=== PATIENT | female | born 1970 | race Caucasian/White ===

== ENCOUNTER 2021-03-16 11:53 | Emergency (ER) | payer OTHER ==
[2021-03-16 12:39] LABS: Absolute Lymphocytes (CBC) 3.1 K/uL (0.7-4.9); Hematocrit 40.4 % (36.0-45.0); Lymphocytes % 39.4 % (15.3-44.8); MPV 7.4 fL (7.6-11.3); RBC Red Blood Cell Count 4.49 M/uL (3.86-4.86)
[2021-03-16] MEDS ORDERED: ONDANSETRON 4 MG/2 ML VIAL ONE (12:48)
[2021-03-16] MEDS ORDERED: MORPHINE 2 MG/ML SYR ONE (12:48)
[2021-03-16 13:01] LABS: Protime INR 1.17
--- NOTE | 2021-03-16 13:11 | RAD REPORT ---
EXAM DESCRIPTION: RAD - Chest Single View - 03/16/2021 12:59 pm CLINICAL HISTORY: CHEST PAIN Chest pain. COMPARISON: No comparisons FINDINGS: Portable technique limits examination quality. The lungs are grossly clear. The heart is normal in size. No displaced fractures. IMPRESSION: No acute intrathoracic process suspected.
[2021-03-16 13:22] LABS: ALT/SGPT 43 U/L (12-78); AST/SGOT 31 U/L (15-37); Albumin 4.2 g/dL (3.4-5.0); Alkaline Phosphatase 66 U/L (45-117); BUN Blood Urea Nitrogen 12 mg/dL (7-18); Bicarbonate 27 mmol/L (21-32); Bilirubin Direct 0.1 mg/dL (0-0.2); Bilirubin Total 0.3 mg/dL (0.2-1.0); Glucose Level 112 mg/dL (74-106); Magnesium 2.2 mg/dL (1.8-2.4); NT PRO-BNP 35 pg/mL (<125); Potassium 3.9 mmol/L (3.5-5.1); Protein, Total 8.3 g/dL (6.4-8.2); Sodium Level 145 mmol/L (136-145); Troponin (Emerg Dept Use Only) < 0.02 ng/mL (0.0-0.045)
[2021-03-16] MEDS ORDERED: KETOROLAC 30 MG/ML INJ ONE (15:20)
[2021-03-16] MEDS ORDERED: DIAZEPAM 5 MG TABLET ONE (16:49)
--- NOTE | 2021-03-16 16:58 | ER ---
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 States same thing happened , she went to [place], work up negative. Diagnosed with pleurisy. Coronavirus screen: Vaccine status: Patient reports receiving the 1st dose of the Covid vaccine. Client denies travel out of the [place] in the last 14 days. At this time, the client does not indicate any symptoms associated with coronavirus-19. Ebola Screen: Patient denies travel to an Ebola-affected area in the 21 days before illness onset. Initial Sepsis Screen: Does the patient meet any 2 criteria? HR > 90 bpm. No. Patient's initial sepsis screen is negative. Does the patient have a suspected source of infection? No. Patient's initial sepsis screen is negative. Risk Assessment: Do you want to hurt yourself or someone else? Patient reports no desire to harm self or others. Onset of symptoms was March 16, 2021. 12:03 Method Of Arrival: Ambulatory ll1 12:03 Acuity: BERNICE 3 ll1 Historical: - Allergies: 12:05 No Known Allergies; ll1 - PMHx: 12:05 None; ll1 - PSHx: 12:05 None; ll1 - Immunization history:: Client reports receiving the Unruly \T\ Unruly single-dose vaccine. - Social history:: Smoking status: Patient denies any tobacco usage or history of. Screenin:30 Abuse screen: Denies threats or abuse. Nutritional screening: No deficits noted. sl2 Tuberculosis screening: No symptoms or risk factors identified. Fall Risk None identified. Assessment: 10:30 General: Appears distressed, uncomfortable, Behavior is cooperative, crying, Reports sl2 Left sided chest wall pain - worst with arm movement and deep breathing. 10:30 Pain: Complains of pain in left chest wall Pain does not radiate. Pain currently is 10 sl2 out of 10 on a pain scale. Quality of pain is described as aching, sharp, Pain began 2-3 days ago. Alleviated by repositioning, Aggravated by increased activity, Noted to be crying, grimacing, moaning, resistant to movement. Neuro: No deficits noted. Cardiovascular: No deficits noted. Respiratory: No deficits noted. GI: No deficits noted. : No deficits noted. EENT: No deficits noted. Derm: No deficits noted. Musculoskeletal: No deficits noted. Vital Signs: 12:03 BP 190 / 101; Pulse 104; Resp 18; Temp 98.2; Pulse Ox 99% ; Pain 10/10; ll1 13:30 BP 126 / 86; Pulse 66; Resp 18; Temp 97.8; Pulse Ox 99% on R/A; sl2 14:30 BP 128 / 76; Pulse 78; Resp 22; Temp 97.6; Pulse Ox 99% on R/A; sl2 15:30 BP 145 / 88; Pulse 66; Resp 18; Temp 98.2; sl2 16:30 BP 135 / 81; Pulse 74; Resp 16; Temp 98.2; Pulse Ox 99% on R/A; sl2 ED Course: 10:30 Patient has correct armband on for positive identification. teletypesetter monitor on. sl2 12:01 Patient arrived in ED. as 12:05 Markel Bull NP is PHCP. pm1 12:05 Phil Jain MD is Attending Physician. pm1 12:05 Triage completed. ll1 12:05 Arm band placed on Patient placed in an exam room, on a stretcher. ll1 12:13 Initial lab(s) drawn, by me, sent to lab. Inserted saline lock: 20 gauge in left dh3 antecubital area, using aseptic technique. Blood collected. 12:21 Emily Regalado, TAMANNA is Primary Nurse. sl2 12:59 XRAY Chest (1 view) In Process Unspecified. EDMS 17:38 No provider procedures requiring assistance completed. IV discontinued, intact, iw bleeding controlled, No redness/swelling at site. Pressure dressing applied. Patient maintains SpO2 saturation greater than 95% on room air. Administered Medications: 04:27 Drug: Valium (diazepam) 2.5 mg Route: PO; sl2 17:17 Follow up: Response: No adverse reaction; Pain is decreased sl2 12:46 Drug: Zofran (Ondansetron) 4 mg Route: IVP; Site: left antecubital; sl2 13:48 Follow up: Response: No adverse reaction sl2 12:48 Drug: morphine 4 mg Route: IVP; Site: left antecubital; sl2 13:48 Follow up: Response: No adverse reaction; Pain is decreased sl2 14:57 Drug: Ketorolac 30 mg Route: IVP; Site: left antecubital; sl2 15:20 Follow up: Response: No adverse reaction; Pain is decreased sl2 16:17 CANCELLED (Physician Discretion): Valium (diazepam) 2 mg PO once pm1 Outcome: 16:57 Discharge ordered by MD. pm1 17:39 Discharged to home ambulatory. iw 17:39 Condition: good 17:39 Discharge instructions given to patient, Instructed on discharge instructions, follow up and referral plans. medication usage, Demonstrated understanding of instructions, follow-up care, medications, Prescriptions given X 2. 17:39 Patient left the ED. iw Signatures: Dispatcher [employer] EDMS Nataliia Hardy Irene, TAMANNA RN Markel Bull, ZAIDA DIRECTOR GEOPHYSICAL LABORATORY pm1 Gemini Tapia 3 Russell Avina RN RN ll1 Emily Regalado RN RN sl2
--- NOTE | 2021-03-16 16:58 | EDPHYS ---
Physician Documentation [facility] Name: Yessica Howard Age: 50 yrs Sex: Female : 1970 Arrival Date: 03/16/2021 Time: 12:01 Bed 17 Private MD: ED Physician Phil Jain HPI: 03/16 12:09 This 50 yrs old Female presents to ER via Ambulatory with complaints of Chest pm1 Pain. 12:09 The patient or guardian reports chest pain that is located primarily in the left pm1 breast. Onset: 5 day(s) ago. The pain does not radiate. Associated signs and symptoms: The patient has no apparent associated signs or symptoms, Pertinent negatives: abdominal pain, cough, diaphoresis, dizziness, headache, nausea, shortness of breath, vomiting. The chest pain is described as sharp. Duration: The patient or guardian reports a single episode, that is still ongoing. Modifying factors: the symptoms are aggravated by deep breath, Moving left arm. Severity of pain: in the emergency department the pain is actually worse. The patient has not experienced similar symptoms in the past. The patient has been recently seen by a physician: Patient seen and evaluated at [facility] ER for the same complaint and was diagnosed with pleurisy. 16:48 Patient reports onset of left chest pain after riding on amusement park ride was bumpy. pm1 Pain possibly due to holding on to the ride with her left hand. Historical: - Allergies: 12:05 No Known Allergies; ll1 - PMHx: 12:05 None; ll1 - PSHx: 12:05 None; ll1 - Immunization history:: Client reports receiving the Unruly \T\ Unruly single-dose vaccine. - Social history:: Smoking status: Patient denies any tobacco usage or history of. ROS: 12:09 Constitutional: Negative for fever, chills, and weight loss. pm1 12:09 Respiratory: Negative for shortness of breath, cough, wheezing, and pleuritic chest pain, Abdomen/GI: Negative for abdominal pain, nausea, vomiting, diarrhea, and constipation, Back: Negative for injury and pain, MS/Extremity: Negative for injury and deformity, Skin: Negative for injury, rash, and discoloration. 12:09 Neuro: Negative for headache, weakness, numbness, tingling, and seizure. 12:09 Cardiovascular: Positive for chest pain, Negative for edema, palpitations. 12:09 All other systems are negative. Exam: 12:09 Constitutional: This is a well developed, well nourished patient who is awake, alert, pm1 and in no acute distress. Head/Face: Normocephalic, atraumatic. 12:09 Back: No spinal tenderness. No costovertebral tenderness. Full range of motion. Skin: Warm, dry with normal turgor. Normal color with no rashes, no lesions, and no evidence of cellulitis. MS/ Extremity: Pulses equal, no cyanosis. Neurovascular intact. Full, normal range of motion. 12:09 Chest/axilla: Inspection: normal, Palpation: no acute changes. 12:09 Cardiovascular: Rate: normal, Rhythm: regular, Pulses: no pulse deficits are appreciated, Edema: is not appreciated. 12:09 Respiratory: Exam negative for acute changes, the patient does not display signs of respiratory distress, Breath sounds: are clear throughout. 12:09 Abdomen/GI: Inspection: abdomen appears normal, Palpation: abdomen is soft and non-tender, in all quadrants. 12:09 Neuro: Exam negative for acute changes, Orientation: is normal, Mentation: is normal, Motor: is normal, moves all fours. Vital Signs: 12:03 BP 190 / 101; Pulse 104; Resp 18; Temp 98.2; Pulse Ox 99% ; Pain 10/10; ll1 13:30 BP 126 / 86; Pulse 66; Resp 18; Temp 97.8; Pulse Ox 99% on R/A; sl2 14:30 BP 128 / 76; Pulse 78; Resp 22; Temp 97.6; Pulse Ox 99% on R/A; sl2 15:30 BP 145 / 88; Pulse 66; Resp 18; Temp 98.2; sl2 16:30 BP 135 / 81; Pulse 74; Resp 16; Temp 98.2; Pulse Ox 99% on R/A; sl2 MDM: 12:05 Patient medically screened. pm1 14:38 Data reviewed: vital signs. Data interpreted: Pulse oximetry: on room air is 99 %. pm1 Interpretation: normal. 16:57 Counseling: I had a detailed discussion with the patient and/or guardian regarding: the pm1 historical points, exam findings, and any diagnostic results supporting the discharge/admit diagnosis, lab results, radiology results, the need for outpatient follow up, to return to the emergency department if symptoms worsen or persist or if there are any questions or concerns that arise at home. 03/16 12:09 Order name: Basic Metabolic Panel; Complete Time: 13:23 pm1 03/16 12:09 Order name: CBC with Diff; Complete Time: 13:10 pm1 03/16 12:09 Order name: LFT's; Complete Time: 13:23 pm1 03/16 12:09 Order name: Magnesium; Complete Time: 13:23 pm1 03/16 12:09 Order name: NT PRO-BNP; Complete Time: 13:23 pm1 03/16 12:09 Order name: PT-INR; Complete Time: 13:10 pm1 03/16 12:09 Order name: Troponin (emerg Dept Use Only); Complete Time: 13:23 pm1 03/16 12:09 Order name: XRAY Chest (1 view); Complete Time: 13:23 pm1 03/16 15:48 Order name: Troponin (emerg Dept Use Only): Draw at 1615; Complete Time: 16:57 pm1 03/16 12:09 Order name: EKG; Complete Time: 12:10 pm1 03/16 12:09 Order name: Cardiac monitoring; Complete Time: 13:18 pm1 03/16 12:09 Order name: EKG - Nurse/Tech; Complete Time: 13:18 pm1 03/16 12:09 Order name: IV Saline Lock; Complete Time: 12:21 pm1 03/16 12:09 Order name: Labs collected and sent; Complete Time: 12:21 pm1 03/16 12:09 Order name: O2 Per Protocol; Complete Time: 13:18 pm1 03/16 12:09 Order name: O2 Sat Monitoring; Complete Time: 13:18 pm1 Administered Medications: 04:27 Drug: Valium (diazepam) 2.5 mg Route: PO; sl2 17:17 Follow up: Response: No adverse reaction; Pain is decreased sl2 12:46 Drug: Zofran (Ondansetron) 4 mg Route: IVP; Site: left antecubital; sl2 13:48 Follow up: Response: No adverse reaction sl2 12:48 Drug: morphine 4 mg Route: IVP; Site: left antecubital; sl2 13:48 Follow up: Response: No adverse reaction; Pain is decreased sl2 14:57 Drug: Ketorolac 30 mg Route: IVP; Site: left antecubital; sl2 15:20 Follow up: Response: No adverse reaction; Pain is decreased sl2 16:17 CANCELLED (Physician Discretion): Valium (diazepam) 2 mg PO once pm1 Disposition: 03/17 10:38 Co-signature as Attending Physician, Phil Jain MD I agree with the assessment and mason plan of care. Disposition Summary: 03/16/21 16:57 Discharge Ordered Location: Home pm1 Problem: new pm1 Symptoms: have improved pm1 Condition: Stable pm1 Diagnosis - Chest pain, unspecified pm1 Followup: pm1 - With: Emergency Department - When: As needed - Reason: Worsening of condition Followup: pm1 - With: Private Physician - When: 2 - 3 days - Reason: Recheck today's complaints, Continuance of care, Re-evaluation by your physician Discharge Instructions: - Discharge Summary Sheet pm1 - Nonspecific Chest Pain, Adult pm1 Forms: - Medication Reconciliation Form pm1 - Thank You Letter pm1 - Antibiotic Education pm1 - Prescription Opioid Use pm1 - Work release form pm1 Prescriptions: - Cyclobenzaprine 10 mg Oral Tablet - take 1 tablet by ORAL route every 8 hours As needed; 30 tablet; Refills: 0, pm1 Product Selection Permitted - Diclofenac Sodium 75 mg Oral tablet,delayed release (DR/EC) - take 1 tablet by ORAL route 2 times per day As needed; 30 tablet; Refills: 0, pm1 Product Selection Permitted Signatures: Dispatcher [employer] Phil Lemus MD MD cha Marinas, Patrick, ZAIDA MAINTENANCE WORKER HOUSE TRAILER pm1 Russell Avina RN RN ll1 Emily Regalado RN RN sl2 Corrections: (The following items were deleted from the chart) 03/16 16:17 16:09 Valium (diazepam) 2 mg PO once ordered. pm1 pm1
[2021-03-16 18:00] VITALS: O2SAT 99
[2021-03-16 18:04] VITALS: TEMP 98.2
[2021-03-16 18:06] VITALS: BP 135/81
== END 2021-03-16 17:39 | disposition home or self-care (01) ==
LOC: ER 11:53
DX: R07.9 Chest pain, unspecified (principal)
CPT/HCPCS: 93005; 85025; 80048; 36415; 83735; 85610; 80076; 84484 ×2; 83880; 71045; 96375; 96374; 99285; J2270; J2405

== ENCOUNTER 2021-12-30 09:04 | Emergency (ER) | payer BC, OTHER ==
[2021-12-30] MEDS ORDERED: ONDANSETRON 4 MG/2 ML VIAL ONE (09:28)
[2021-12-30] MEDS ORDERED: MORPHINE 4 MG/ML SYR ONE ×2 (09:28→10:09)
[2021-12-30] MEDS ORDERED: NA CHLORIDE 0.9% 1,000 ML ONE (09:28)
[2021-12-30 09:39] LABS: Absolute Lymphocytes (CBC) 1.7 K/uL (0.7-4.9); Hematocrit 39.3 % (36.0-45.0); Lymphocytes % 20.3 % (15.3-44.8); MCV 87.7 fL (80-100); MPV 6.9 fL (7.6-11.3); RBC Red Blood Cell Count 4.49 M/uL (3.86-4.86)
[2021-12-30 09:50] LABS: Albumin 4.1 g/dL (3.4-5.0); Bilirubin Total 0.3 mg/dL (0.2-1.0); Potassium 3.7 mmol/L (3.5-5.1); Protein, Total 7.6 g/dL (6.4-8.2)
[2021-12-30] MEDS ORDERED: KETOROLAC 30 MG/ML INJ ONE (10:23)
[2021-12-30 10:36] LABS: Urine Blood Negative (Negative); Urine Glucose Negative (Negative); Urine Protein Negative (Negative); Urine Specific Gravity >=1.030 (1.005-1.030); Urine pH 5.5 (5.0-7.0)
[2021-12-30 10:58] LABS: Calcium Oxalate Crystals- Ur Few /HPF (None Seen); Urine Bacteria <20 /HPF (<20); Urine Mucus 1+ /HPF (None Seen); Urine RBC <5 /HPF (None Seen)
[2021-12-30] MEDS ORDERED: HYDROMORPHONE HCL 1 MG/ML INJ ONE ×2 (11:01→12:35)
--- NOTE | 2021-12-30 11:01 | RAD REPORT ---
EXAM DESCRIPTION: CTStone Protocol - 12/30/2021 10:42 am CLINICAL HISTORY: Flank pain, kidney stone suspected COMPARISON: No comparisons TECHNIQUE: CT of the abdomen and pelvis was performed. All CT scans are performed using dose optimization technique as appropriate and may include automated exposure control or mA/KV adjustment according to patient size. FINDINGS: Lower chest: No acute abnormality. Circumferentially thickened distal esophagus. Liver: No acute abnormality or suspicious lesions. Biliary: No biliary ductal dilatation. Stomach: No significant focal abnormality. Duodenum: No significant focal abnormality. Pancreas: No significant abnormality. Spleen: No significant abnormality. Adrenal: No suspicious lesions. Kidney/ureter: Probable 3 mm stone in the right distal ureter but there are several phleboliths/ calc ifications in the region. Nonobstructing stones in the right kidney and left. Retroperitoneum: No retroperitoneal adenopathy. Vascular: No aneurysm. Bowel: No significant focal abnormality. Appendix is nonvisualized. No secondary signs of acute appen dicitis. Peritoneum: No ascites or free air. Bladder: Grossly unremarkable. Reproductive: No adnexal masses. Bones: No acute fracture. Multilevel degenerative changes are present in the spine. Other: n/a IMPRESSION: Mild right-sided hydroureteronephrosis. 3 mm stone suspected in the right distal ureter.
[2021-12-30] MEDS ORDERED: TAMSULOSIN 0.4 MG SR CAP ONE (11:32)
[2021-12-30] MEDS ORDERED: MAGNESIUM SULFATE 1 gm IVPB 1 GM/100 ML BAG IV ONE (11:32)
--- NOTE | 2021-12-30 12:25 | EDPHYS ---
Physician Documentation [facility] Name: Yessica Howard Age: 51 yrs Sex: Female : 1970 Arrival Date: 12/30/2021 Time: 09:06 Bed 12 Private MD: ED Physician Phil Jain HPI: 12/30 09:20 This 51 yrs old Female presents to ER via Ambulatory with complaints of Flank Pain. cp 09:20 The patient complains of pain in the right flank. The pain radiates to the right side cp low back. Onset: The symptoms/episode began/occurred this morning. 09:20 Associated signs and symptoms: Pertinent positives: nausea, vomiting, Pertinent cp negatives: diarrhea, dysuria, fever, pain radiating to the lower extremities. Severity of pain: in the emergency department the pain is unchanged despite home interventions. BASKETBALL SCOUT: 10:04 LMP N/A - Post-menopause iw Historical: - Allergies: 09:11 No Known Allergies; iw - Home Meds: 09:11 None [Active]; iw - PMHx: 09:11 None; iw - PSHx: 09:11 None; iw - Immunization history:: Client reports receiving the 2nd dose of the Covid vaccine. - Social history:: Smoking status: Patient denies any tobacco usage or history of. ROS: 09:30 Constitutional: Negative for body aches, chills, fever, poor PO intake. cp 09:30 Eyes: Negative for injury, pain, redness, and discharge. cp 09:30 Cardiovascular: Negative for chest pain, palpitations. 09:30 Respiratory: Negative for cough, shortness of breath, wheezing. 09:30 Abdomen/GI: Positive for nausea and vomiting, Negative for diarrhea, constipation. 09:30 Back: Positive for flank pain, on the right, Negative for injury or acute deformity, decreased range of motion. 09:30 : Negative for urinary symptoms. 09:30 Neuro: Negative for altered mental status, headache, weakness. 09:30 All other systems are negative. Exam: 09:33 Constitutional: The patient appears in no acute distress, alert, awake, cp non-diaphoretic, non-toxic, well developed, well nourished, in obvious pain, uncomfortable. 09:33 Head/Face: Normocephalic, atraumatic. cp 09:33 Eyes: Periorbital structures: appear normal, Conjunctiva: normal, no exudate, no injection, Sclera: no appreciated abnormality, Lids and lashes: appear normal, bilaterally. 09:33 ENT: External ear(s): are unremarkable, Nose: is normal, Mouth: Lips: moist, Oral mucosa: moist, Posterior pharynx: Airway: no evidence of obstruction, patent. 09:33 Chest/axilla: Inspection: normal. 09:33 Cardiovascular: Rate: normal, Rhythm: regular. 09:33 Respiratory: the patient does not display signs of respiratory distress, Respirations: normal, no use of accessory muscles, no retractions, labored breathing, is not present, Breath sounds: are clear throughout, no decreased breath sounds, no stridor, no wheezing. 09:33 Abdomen/GI: Inspection: abdomen appears normal, Bowel sounds: active, all quadrants, Palpation: soft, in all quadrants, severe abdominal tenderness, in the posterior aspect of right lateral abdomen, anterior aspect of right lateral abdomen and right lower quadrant, rebound tenderness, is not appreciated, voluntary guarding, is elicited in the posterior aspect of right lateral abdomen, anterior aspect of right lateral abdomen and right lower quadrant. 09:33 Skin: cellulitis, is not appreciated, no rash present. 09:33 Neuro: Orientation: to person, place \T\ time. Mentation: is normal, Motor: moves all fours, strength is normal, Sensation: is normal. Vital Signs: 09:10 BP 154 / 85; Pulse 96; Resp 18; Temp 98.0; Pulse Ox 100% on R/A; Weight 56.7 kg; Height iw 5 ft. 5 in. (165.10 cm); Pain 10/10; 10:55 BP 114 / 75; Pulse 74; Resp 16; Pulse Ox 100% on R/A; Pain 10/10; iw 09:10 Body Mass Index 20.80 (56.70 kg, 165.10 cm) iw MDM: 09:12 Patient medically screened. cp 12:24 Data reviewed: vital signs, nurses notes, lab test result(s), radiologic studies, CT cp scan. 12:24 Differential diagnosis: nephrolithiasis, pyelonephritis, UTI, pancreatitis. Counseling: cp I had a detailed discussion with the patient and/or guardian regarding: the historical points, exam findings, and any diagnostic results supporting the discharge/admit diagnosis, lab results, radiology results, to return to the emergency department if symptoms worsen or persist or if there are any questions or concerns that arise at home. Response to treatment: the patient's symptoms have markedly improved after treatment, and as a result, I will discharge patient. 12/30 09:12 Order name: CBC with Diff; Complete Time: 10:00 iw 12/30 10:01 Interpretation: Normal except: MPV 6.9. cp 12/30 09:12 Order name: CMP; Complete Time: 10:00 iw 12/30 10:01 Interpretation: Normal except: CL 113; GLUC 125. cp 12/30 09:12 Order name: Lipase; Complete Time: 10:00 iw 12/30 09:17 Order name: Urine Microscopic Only; Complete Time: 11:08 cp 12/30 11:08 Interpretation: Reviewed. 12/30 10:36 Order name: Urine Dipstick-Ancillary; Complete Time: 10:38 EDMS 12/30 10:00 Order name: CT Stone Protocol; Complete Time: 11:08 cp 12/30 09:12 Order name: IV Saline Lock; Complete Time: 09:24 iw 12/30 09:12 Order name: Labs collected and sent; Complete Time: 09:27 iw 12/30 09:12 Order name: Urine Dipstick-Ancillary (obtain specimen); Complete Time: 10:20 iw 12/30 11:10 Order name: PO challenge; Complete Time: 12:24 cp Administered Medications: : Drug: morphine 4 mg Route: IVP; Infused Over: 4 mins; Site: left antecubital; iw Drug: Zofran (Ondansetron) 4 mg Route: IVP; Site: left antecubital; iw : Drug: NS 0.9% 1000 ml Route: IV; Rate: 1 bolus; Site: left antecubital; iw 10:45 Follow up: IV Status: Completed infusion; IV Intake: 1000ml ss 10: Drug: Ketorolac 15 mg Route: IVP; Site: left antecubital; iw 10:40 Follow up: Response: No change in condition; Pain is unchanged, physician notified iw 10:19 Drug: morphine 4 mg Route: IVP; Infused Over: 4 mins; Site: left antecubital; iw 10:40 Follow up: Response: No change in condition; Pain is unchanged, physician notified iw 10:58 Drug: Dilaudid (HYDROmorphone) 1 mg Route: IVP; Site: left antecubital; iw 12:39 Follow up: Response: No adverse reaction; pain minimally decreased, temporarily ss 11:28 Drug: Flomax (tamsulosin) 0.4 mg Route: PO; [facility] 12:39 Follow up: Response: No adverse reaction ss 11:29 Drug: Magnesium Sulfate 1 grams Route: IVPB; Infused Over: 1 hrs; Site: left [facility] antecubital; 12:30 Follow up: IV Status: Completed infusion; IV Intake: 100ml ss 12:35 Drug: Dilaudid (HYDROmorphone) 1 mg Route: IVP; Site: left antecubital; iw 12:40 Follow up: Response: No adverse reaction; Pain is decreased ss Disposition Summary: 12/30/21 12:24 Discharge Ordered Location: Home cp Problem: new cp Symptoms: have improved cp Condition: Stable cp Diagnosis - Calculus of kidney with calculus of ureter - right cp Followup: cp - With: Joseph Brooks MD - When: 2 - 3 days - Reason: pain continues Discharge Instructions: - Discharge Summary Sheet cp - Kidney Stones cp - Renal Colic cp Forms: - Medication Reconciliation Form cp - Thank You Letter cp - Antibiotic Education cp - Prescription Opioid Use cp - Work release form Prescriptions: - Flomax 0.4 mg Oral capsule - take 1 capsule by ORAL route once daily 1/2 hour following the same meal each cp day; 5 capsule; Refills: 0, Product Selection Permitted - Ibuprofen 800 mg Oral Tablet - take 1 tablet by ORAL route every 8 hours As needed take with food; 30 tablet; cp Refills: 0, Product Selection Permitted - Zofran 4 mg Oral Tablet - take 1 tablet by ORAL route every 12 hours As needed; 20 tablet; Refills: 0, cp Product Selection Permitted - Tylenol-Codeine #3 300 mg-30 mg Oral - take 2 tablet by ORAL route every 6-8 hours As needed; 20 tablet; Refills: 0, cp Product Selection Permitted Signatures: Dispatcher [employer] Roxi Tse RN RN Phil Anderson PA PA cp Selene Macias RN RN [facility] Smirch, Cathy RN ss
--- NOTE | 2021-12-30 12:25 | ER ---
Nurse's Notes [facility] Name: Yessica Howard Age: 51 yrs Sex: Female : 1970 Arrival Date: 12/30/2021 Time: 09:06 Bed 12 Private MD: Diagnosis: Calculus of kidney with calculus of ureter-right Presentation: 12/30 09:10 Chief complaint: Patient states: right side pain , hurts more when she moves, started iw this morning , no hx of kidney stone. Coronavirus screen: At this time, the client does not indicate any symptoms associated with coronavirus-19. Ebola Screen: Patient negative for fever greater than or equal to 101.5 degrees Fahrenheit, and additional compatible Ebola Virus Disease symptoms Patient denies exposure to infectious person. Patient denies travel to an Ebola-affected area in the 21 days before illness onset. No symptoms or risks identified at this time. Initial Sepsis Screen: Does the patient meet any 2 criteria? No. Patient's initial sepsis screen is negative. Does the patient have a suspected source of infection? No. Patient's initial sepsis screen is negative. Risk Assessment: Do you want to hurt yourself or someone else? Patient reports no desire to harm self or others. Onset of symptoms was December 30, 2021. 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 - Social history:: Smoking status: Patient denies any tobacco usage or history of. Screenin:13 Abuse screen: Denies threats or abuse. Denies injuries from another. Nutritional iw screening: No deficits noted. Tuberculosis screening: No symptoms or risk factors identified. Fall Risk IV access (20 points). Assessment: 09:12 General: Appears uncomfortable, ill, Behavior is calm, cooperative. Pain: Complains of iw pain in posterior aspect of right lateral abdomen, anterior aspect of right lateral abdomen and right upper quadrant. Neuro: Level of Consciousness is awake, alert, obeys commands, Oriented to person, place, time, situation. Cardiovascular: Patient's skin is warm and dry. Respiratory: Respiratory effort is even. GI: Reports nausea. : Reports pain in right flank(s). Derm: Skin is intact, is healthy with good turgor. Musculoskeletal: Range of motion: intact in all extremities. 10:15 Reassessment: No changes from previously documented assessment. Patient states symptoms iw have not improved. 10:50 Reassessment: No changes from previously documented assessment. Patient states symptoms iw have not improved. General: Appears uncomfortable. 12:00 Reassessment: No changes from previously documented assessment. Patient states symptoms iw have not improved. 12:37 Reassessment: RASS score 0. Pt remains in exam room awaiting ride. Verbalizes ss understanding to push call light when ride arrives and we will assist her to vehicle as necessary. RR even and unlabored. PT is grateful for care received thus far. Vital Signs: 09:10 BP 154 / 85; Pulse 96; Resp 18; Temp 98.0; Pulse Ox 100% on R/A; Weight 56.7 kg; Height iw 5 ft. 5 in. (165.10 cm); Pain 10/10; 10:55 BP 114 / 75; Pulse 74; Resp 16; Pulse Ox 100% on R/A; Pain 10/10; iw 09:10 Body Mass Index 20.80 (56.70 kg, 165.10 cm) iw ED Course: 09:06 Patient arrived in ED. rg4 09:11 Triage completed. iw 09:11 Arm band placed on. iw 09:12 Roxi Casey, RN is Primary Nurse. iw 09:12 Phil Anderson PA is PHCP. cp 09:12 Phil Jain MD is Attending Physician. cp 09:23 Inserted saline lock: 20 gauge in left antecubital area, using aseptic technique. Blood kc6 collected. 09:27 CBC with Diff Sent. kc6 09:27 CMP Sent. kc6 09:27 Lipase Sent. kc6 10:44 CT Stone Protocol In Process Unspecified. EDMS 12:23 Joseph Brooks MD is Referral Physician. cp 12:37 Patient has correct armband on for positive identification. ss 12:37 No provider procedures requiring assistance completed. IV discontinued, intact, ss bleeding controlled, No redness/swelling at site. Pressure dressing applied. Administered Medications: 09:27 Drug: morphine 4 mg Route: IVP; Infused Over: 4 mins; Site: left antecubital; iw 09:27 Drug: Zofran (Ondansetron) 4 mg Route: IVP; Site: left antecubital; iw 09:27 Drug: NS 0.9% 1000 ml Route: IV; Rate: 1 bolus; Site: left antecubital; iw 10:45 Follow up: IV Status: Completed infusion; IV Intake: 1000ml ss 10:19 Drug: Ketorolac 15 mg Route: IVP; Site: left antecubital; iw 10:40 Follow up: Response: No change in condition; Pain is unchanged, physician notified iw 10:19 Drug: morphine 4 mg Route: IVP; Infused Over: 4 mins; Site: left antecubital; iw 10:40 Follow up: Response: No change in condition; Pain is unchanged, physician notified iw 10:58 Drug: Dilaudid (HYDROmorphone) 1 mg Route: IVP; Site: left antecubital; iw 12:39 Follow up: Response: No adverse reaction; pain minimally decreased, temporarily ss 11:28 Drug: Flomax (tamsulosin) 0.4 mg Route: PO; 5 12:39 Follow up: Response: No adverse reaction ss 11:29 Drug: Magnesium Sulfate 1 grams Route: IVPB; Infused Over: 1 hrs; Site: left [facility] antecubital; 12:30 Follow up: IV Status: Completed infusion; IV Intake: 100ml ss 12:35 Drug: Dilaudid (HYDROmorphone) 1 mg Route: IVP; Site: left antecubital; iw 12:40 Follow up: Response: No adverse reaction; Pain is decreased ss Medication: 12:37 VIS not applicable for this client. ss Intake: 10:45 IV: 1000ml; Total: 1000ml. ss 12:30 IV: 100ml; Total: 1100ml. ss Outcome: 12:24 Discharge ordered by MD. cp 12:37 Condition: improved ss 12:37 Discharge instructions given to patient, Instructed on discharge instructions, follow up and referral plans. medication usage, Demonstrated understanding of instructions, follow-up care, medications, Prescriptions given X 4. 13:11 Discharged to home ambulatory. ss 13:12 Patient left the ED. ss Signatures: Dispatcher [employer] Roxi Tse RN RN iw Cathy Valle RN RN ss Phil Anderson PA PA cp Garcia, Rubi rg4 Selene Macias RN RN jh5 Shalini Marquez kc6 Corrections: (The following items were deleted from the chart) 09:12 09:10 Pulse 96bpm; Resp 18bpm; Pulse Ox 100% RA; Temp 98.0F; 56.7 kg; Height 5 ft. 5 iw in.; BMI: 20.8; Pain 10; iw
[2021-12-30 14:44] VITALS: TEMP 98; O2SAT 100
[2021-12-30 14:52] VITALS: BP 114/75
== END 2021-12-30 13:12 | disposition home or self-care (01) ==
LOC: ER 09:04
DX: N20.2 Calculus of kidney with calculus of ureter (principal)
CPT/HCPCS: 85025; 36415; 83690; 80053; 76377; 74176; J3475; J1170 ×2; J7030; J2405; 81003; 81015

== ENCOUNTER 2021-12-31 12:02 | Emergency (ER) | payer BC ==
[2021-12-31 13:30] LABS: Absolute Lymphocytes (CBC) 1.3 K/uL (0.7-4.9); Hematocrit 36.1 % (36.0-45.0); Lymphocytes % 13.4 % (15.3-44.8); MCV 88.1 fL (80-100); MPV 8.6 fL (7.6-11.3)
[2021-12-31] MEDS ORDERED: KETOROLAC 30 MG/ML INJ ONE (14:10)
[2021-12-31] MEDS ORDERED: PROMETHAZINE INJ 25 MG/ML AMP ONE ×2 (14:12→16:52)
[2021-12-31 14:15] LABS: Urine Blood 2+ (Negative); Urine Glucose Negative (Negative); Urine Protein Negative (Negative); Urine Specific Gravity <=1.005 (1.005-1.030)
[2021-12-31 14:25] LABS: Albumin 3.8 g/dL (3.4-5.0); Bilirubin Total 0.4 mg/dL (0.2-1.0); Protein, Total 7.2 g/dL (6.4-8.2)
--- NOTE | 2021-12-31 15:43 | ER ---
Nurse's Notes [facility] Name: Yessica oHward Age: 51 yrs Sex: Female : 1970 Arrival Date: 12/31/2021 Time: 12:15 Bed 12 Private MD: Diagnosis: Unspecified renal colic Presentation: 12/31 12:58 Chief complaint: Patient states: Arrived via EMS - pt reporting right flank pain. Came ld1 to ER yesterday - diagnosed with kidney stone. Pt reporting pain - no relief from medications. Coronavirus screen: At this time, the client does not indicate any symptoms associated with coronavirus-19. Ebola Screen: No symptoms or risks identified at this time. Initial Sepsis Screen: Does the patient meet any 2 criteria? No. Patient's initial sepsis screen is negative. Does the patient have a suspected source of infection? No. Patient's initial sepsis screen is negative. Risk Assessment: Do you want to hurt yourself or someone else? Patient reports no desire to harm self or others. Onset of symptoms was December 31, 2021. 12:58 Method Of Arrival: Ambulatory ld1 12:58 Acuity: BERNICE 3 ld1 Triage Assessment: 12:58 General: Appears in no apparent distress. uncomfortable, Behavior is anxious, crying, ld1 fussy. Pain: Complains of pain in right low back and right lower quadrant. EENT: No signs and/or symptoms were reported regarding the EENT system. Neuro: Level of Consciousness is awake, alert, obeys commands, Oriented to person, place, time, situation. Cardiovascular: Capillary refill < 3 seconds Patient's skin is warm and dry. Respiratory: Airway is patent Respiratory effort is even, unlabored. GI: Abdomen is flat, non-distended, Reports upper abdominal pain. : No signs and/or symptoms were reported regarding the genitourinary system. Derm: No signs and/or symptoms reported regarding the dermatologic system. Musculoskeletal: No signs and/or symptoms reported regarding the musculoskeletal system. 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 - Social history:: Smoking status: Patient denies any tobacco usage or history of. Patient/guardian denies using alcohol. Screenin:01 Abuse screen: Denies threats or abuse. Denies injuries from another. Nutritional iw screening: No deficits noted. Tuberculosis screening: No symptoms or risk factors identified. Fall Risk IV access (20 points). Assessment: 13:02 Reassessment: LABS completed in triage. ld1 15:01 Reassessment: Patient appears in no apparent distress at this time. Patient and/or iw family updated on plan of care and expected duration. Pain level reassessed. Patient states feeling better. Patient states symptoms have improved. Vital Signs: 12:58 BP 128 / 83; Pulse 91; Resp 18; Temp 98.1(TE); Pulse Ox 100% on R/A; Weight 58.97 kg; ld1 Height 5 ft. 5 in. (165.10 cm); Pain 10/10; 12:58 Body Mass Index 21.63 (58.97 kg, 165.10 cm) ld1 ED Course: 12:15 Patient arrived in ED. ss 12:55 Cathy Park FNP-C is PHCP. snw 12:55 Milla Nicholas MD is Attending Physician. snw 12:58 Arm band placed on right wrist. EKG completed in triage. Results shown to MD. ld1 13:00 Triage completed. ld1 13:01 Maintain EMS IV. Dressing intact. Good blood return noted. Site clean \T\ dry. Gauge \T\ ld 1 site: 20G LAC. 13:46 Roxi Casey, RN is Primary Nurse. iw 14:04 Lab(s) recollected, by me, sent to lab. jw7 14:04 CMP Sent. jw7 14:04 Lipase Sent. jw7 14:18 Urine collected: clean catch specimen, cloudy. jw7 16:52 No provider procedures requiring assistance completed. IV discontinued, intact, iw bleeding controlled, No redness/swelling at site. Pressure dressing applied. 16:53 Patient has correct armband on for positive identification. iw Administered Medications: 14:09 Drug: Ketorolac 30 mg Route: IVP; Site: left antecubital; iw 14:23 Follow up: Response: No adverse reaction iw 14:09 Drug: Phenergan (promethazine) 6.25 mg Route: IVP; Site: left antecubital; iw 14:15 Follow up: Response: No adverse reaction iw 16:45 Drug: Promethazine 6.25 mg Route: IVP; Site: left antecubital; iw 17:00 Follow up: Response: No adverse reaction iw Medication: 16:53 VIS not applicable for this client. iw Outcome: 15:42 Discharge ordered by MD. iglesias 16:52 Discharged to home ambulatory, with family. iw 16:52 Condition: good 16:52 Discharge instructions given to patient, Instructed on discharge instructions, follow up and referral plans. Demonstrated understanding of instructions, follow-up care, medications, Prescriptions given X 1. 16:53 Patient left the ED. iw Signatures: Cathy Park, SPINNER IRON-C SPINNER IRON-Csnw Roxi Casey, TAMANNA RN Cathy Valle RN RN ss Beatriz Benoit RN RN ld1 Lucina Crockett jw7 Corrections: (The following items were deleted from the chart) 12:57 12:57 PSHx: None; ld1 ld1
--- NOTE | 2021-12-31 15:43 | EDPHYS ---
Physician Documentation [facility] Name: Yessica Howard Age: 51 yrs Sex: Female : 1970 Arrival Date: 12/31/2021 Time: 12:15 Bed 12 Private MD: ED Physician Milla Nicholas HPI: 12/31 14:07 This 51 yrs old Female presents to ER via Ambulatory with complaints of Possible Kidney snw Stone. 14:07 The patient complains of pain in the right mid back and right low back. The pain snw radiates to the back. Onset: The symptoms/episode began/occurred suddenly, yesterday. Associated signs and symptoms: Pertinent positives: vomiting. Severity of pain: At its worst the pain was moderate severe incapacitating. The patient has experienced a previous episode, yesterday. The patient has been recently seen at the [facility] Emergency Department, yesterday. 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 - Social history:: Smoking status: Patient denies any tobacco usage or history of. Patient/guardian denies using alcohol. ROS: 14:06 Eyes: Negative for injury, pain, redness, and discharge, ENT: Negative for injury, snw pain, and discharge, Neck: Negative for injury, pain, and swelling, Cardiovascular: Negative for chest pain, palpitations, and edema, Respiratory: Negative for shortness of breath, cough, wheezing, and pleuritic chest pain, : Negative for injury, bleeding, discharge, and swelling, MS/Extremity: Negative for injury and deformity, Skin: Negative for injury, rash, and discoloration, Neuro: Negative for headache, weakness, numbness, tingling, and seizure, Psych: Negative for depression, anxiety, suicide ideation, homicidal ideation, and hallucinations. 14:06 Constitutional: Positive for fatigue, malaise, poor PO intake. 14:06 Abdomen/GI: Positive for nausea and vomiting. 14:06 Back: Positive for flank pain, on the right. Exam: 14:05 Head/Face: Normocephalic, atraumatic. Eyes: Pupils equal round and reactive to light, snw extra-ocular motions intact. Lids and lashes normal. Conjunctiva and sclera are non-icteric and not injected. Cornea within normal limits. Periorbital areas with no swelling, redness, or edema. ENT: Nares patent. No nasal discharge, no septal abnormalities noted. Tympanic membranes are normal and external auditory canals are clear. Oropharynx with no redness, swelling, or masses, exudates, or evidence of obstruction, uvula midline. Mucous membranes moist. Neck: Trachea midline, no thyromegaly or masses palpated, and no cervical lymphadenopathy. Supple, full range of motion without nuchal rigidity, or vertebral point tenderness. No Meningismus. Chest/axilla: Normal chest wall appearance and motion. Nontender with no deformity. No lesions are appreciated. Cardiovascular: Regular rate and rhythm with a normal S1 and S2. No gallops, murmurs, or rubs. Normal PMI, no JVD. No pulse deficits. Respiratory: Lungs have equal breath sounds bilaterally, clear to auscultation and percussion. No rales, rhonchi or wheezes noted. No increased work of breathing, no retractions or nasal flaring. Abdomen/GI: Soft, non-tender, with normal bowel sounds. No distension or tympany. No guarding or rebound. No evidence of tenderness throughout. 14:05 Skin: Warm, dry with normal turgor. Normal color with no rashes, no lesions, and no evidence of cellulitis. MS/ Extremity: Pulses equal, no cyanosis. Neurovascular intact. Full, normal range of motion. Neuro: Awake and alert, GCS 15, oriented to person, place, time, and situation. Cranial nerves II-XII grossly intact. Motor strength 5/5 in all extremities. Sensory grossly intact. Cerebellar exam normal. Normal gait. Psych: Awake, alert, with orientation to person, place and time. Behavior, mood, and affect are within normal limits. 14:05 Constitutional: The patient appears alert, awake, anxious, restless, uncomfortable. 14:05 Back: pain, that is moderate, that is severe, of the right mid back and right low back, CVA tenderness, that is mild, is noted on the right. Vital Signs: 12:58 BP 128 / 83; Pulse 91; Resp 18; Temp 98.1(TE); Pulse Ox 100% on R/A; Weight 58.97 kg; ld1 Height 5 ft. 5 in. (165.10 cm); Pain 10; 12:58 Body Mass Index 21.63 (58.97 kg, 165.10 cm) ld1 MDM: 13:53 Patient medically screened. snw 15:43 Data reviewed: vital signs, nurses notes. Data interpreted: Pulse oximetry: on room air snw is 100 %. Interpretation: normal. Response to treatment: the patient's symptoms have markedly improved after treatment, patient is well hydrated. Special discussion: Based on the history and exam findings, there is no indication for further emergent testing or inpatient evaluation. I discussed with the patient/guardian the need to see the primary care provider for further evaluation of the symptoms. 12/31 13:02 Order name: CBC with Diff; Complete Time: 13:45 ld1 12/31 13:02 Order name: CMP; Complete Time: 14:36 ld1 12/31 13:02 Order name: Lipase; Complete Time: 14:36 ld1 12/31 13:45 Order name: Urine Culture snw 12/31 14:15 Order name: Urine Dipstick-Ancillary; Complete Time: 14:20 EDMS 12/31 13:02 Order name: IV Saline Lock; Complete Time: 13:02 ld1 12/31 13:02 Order name: Labs collected and sent; Complete Time: 13:02 ld1 12/31 13:02 Order name: Urine Dipstick-Ancillary (obtain specimen); Complete Time: 14:12 ld1 12/31 13:29 Order name: Labs - recollect needed: recollect green top please; Complete Time: 14:04 bd Administered Medications: 14:09 Drug: Ketorolac 30 mg Route: IVP; Site: left antecubital; iw 14:23 Follow up: Response: No adverse reaction iw 14:09 Drug: Phenergan (promethazine) 6.25 mg Route: IVP; Site: left antecubital; iw 14:15 Follow up: Response: No adverse reaction iw 16:45 Drug: Promethazine 6.25 mg Route: IVP; Site: left antecubital; iw 17:00 Follow up: Response: No adverse reaction iw Disposition Summary: 12/31/21 15:42 Discharge Ordered Location: Home snw Condition: Stable snw Diagnosis - Unspecified renal colic snw Followup: snw - With: Emergency Department - When: As needed - Reason: Worsening of condition Followup: snw - With: Private Physician - When: 1 - 2 days - Reason: Recheck today's complaints, Continuance of care, Re-evaluation by your physician Discharge Instructions: - Discharge Summary Sheet snw - Kidney Stones snw - Renal Colic snw - Low-Purine Eating Plan snw - Dietary Guidelines to Help Prevent Kidney Stones snw - Rehydration, Adult snw Forms: - Medication Reconciliation Form snw - Thank You Letter snw - Antibiotic Education snw - Prescription Opioid Use snw Prescriptions: - promethazine 25 mg Oral Tablet - take 1 tablet by ORAL route every 6 hours As needed; 20 tablet; Refills: 0, snw Product Selection Permitted Signatures: Dispatcher [employer] EDChristine Everett Shelly, HYDRAULIC LIFT DRIVER-C HYDRAULIC LIFT DRIVER-Csnw Roxi Casey, RN RN Beatriz Benoit RN RN ld1 Corrections: (The following items were deleted from the chart) 12:57 12:57 PSHx: None; ld1 ld1 14:07 13:50 Stone Protocol+CT.RAD.BRZ ordered. LAURENPR EDMS
[2021-12-31 17:54] VITALS: BP 128/83; TEMP 98.1; O2SAT 100
== END 2021-12-31 16:53 | disposition home or self-care (01) ==
LOC: ER 12:02
DX: N23 Unspecified renal colic (principal)
CPT/HCPCS: 87088; 85025; 87086; 36415; 81003; 83690; 80053; J2550 ×2; 96374; 96375; 99283